=== PATIENT | male | born 1980 | race African-American/Black ===

== ENCOUNTER 2021-07-10 15:45 | Emergency (ER) | payer MEDICAID ==
[~2021-07-10] VITALS: Ht 175.3 cm; Wt 92.0 kg
[2021-07-10 16:00] VITALS: BP 128/81
[2021-07-10] MEDS ORDERED: KETOROLAC 60MG/2ML VIAL IM ONE (16:30)
[2021-07-10] MEDS ORDERED: CYCL10TA7 MT (18:00)
[2021-07-10] MEDS ORDERED: IBUP-2028 MT (18:00)
== END 2021-07-10 18:25 | disposition home or self-care (01) ==
LOC: ER 15:45
DX: S46.911A Strain of unspecified muscle, fascia and tendon at shoulder and upper arm level, right arm, initial encounter (principal); X58.XXXA Exposure to other specified factors, initial encounter; Y93.89 Activity, other specified; Y92.89 Other specified places as the place of occurrence of the external cause; Y99.8 Other external cause status
CPT/HCPCS: 71045; 73030; 96372; 99284; J1885